=== PATIENT | male | born 1965 | race Caucasian/White ===

== ENCOUNTER → 2016-10-06 | Outpatient (CLI) | payer BC ==
--- NOTE | 2016-10-06 11:55 | DIAGNOSTIC IMAGING REPORT ---
ABDOMEN AND PELVIS CT WITHOUT CONTRAST CT DOSE: 1062.76 mGy.cm HISTORY: Flank pain HEMATURIA TECHNIQUE: Multiaxial CT images of the abdomen and pelvis were performed without the use of intravenous and oral contrast according to the standard department stone protocol. COMPARISON STUDY: None. FINDINGS: 3 mm obstructing calculus right ureterovesical junction. Mild right hydroureteronephrosis. No additional renal calcifications. The adrenal glands are unremarkable. Liver spleen and pancreas are unremarkable. Bowel pattern is nonobstructive. IMPRESSION: 3 mm calculus right ureterovesical junction. Moderate right hydroureteronephrosis. Electronically signed by: Kelechi Tinajero M.D. 10/06/2016 11:54 AM Dictated Date/Time: 10/06/2016 11:52 AM
== END | disposition home or self-care (01) ==
LOC: C.CTS 11:36
PROVIDERS: ATTEND Nurse Practitioner Family
DX: R30.0 Dysuria (principal); R31.9 Hematuria, unspecified; N20.1 Calculus of ureter; N13.30 Unspecified hydronephrosis

== ENCOUNTER → 2016-10-17 | Outpatient (CLI) | payer BC ==
--- NOTE | 2016-10-17 12:50 | DIAGNOSTIC IMAGING REPORT ---
KUB CLINICAL HISTORY: N20.0 Calculus of [id number] COMPARISON STUDY: CT scan dated 10/06/2016 FINDINGS: There is no pathologic bowel dilatation. No renal calculi are visualized on conventional radiographic imaging. The recently described distal right ureteral calculus is not visualized on conventional radiographic imaging. Left pelvic basin calcifications likely represent phleboliths. IMPRESSION: 1. No evidence of pathologic bowel dilatation 2. No urinary tract calculi are visualized on conventional radiographic imaging Electronically signed by: Jose Alfredo Loja M.D. 10/17/2016 12:49 PM Dictated Date/Time: 10/17/2016 12:47 PM
== END | disposition home or self-care (01) ==
LOC: C.RAD 12:20
PROVIDERS: ATTEND Urology
DX: N20.0 Calculus of kidney (principal)

== ENCOUNTER → 2016-10-17 | Outpatient (CLI) | payer BC | END | disposition home or self-care (01) | LOC: C.LABSPEC 17:23 | PROVIDERS: ATTEND Urology | DX: N20.0 Calculus of kidney (principal) ==